=== PATIENT | female | born 1960 | race Caucasian/White ===

== ENCOUNTER 2018-07-29 11:27 | Emergency (ER) | payer OTHER, SELFPAY ==
[2018-07-29 11:28] VITALS: BP 141/101; PULSE 78; RESP 15; TEMP 36.6; O2SAT 100; BMI 25.1
--- NOTE | 2018-07-29 11:31 | EKG12_ITS ---
Test Reason : CP Blood Pressure : / mmHG Vent. Rate : 083 BPM Atrial Rate : 083 BPM P-R Int : 142 ms QRS Dur : 070 ms QT Int : 360 ms P-R-T Axes : 075 057 068 degrees QTc Int : 423 ms Normal sinus rhythm Normal ECG Confirmed by JUAN ALMARAZ ([id number]), television news video editor PHILLIP STRINGER ([id number]) on 08/02/2018 1:35:14 PM Referred By: OLIVIA Confirmed By:JUAN ALMARAZ
--- NOTE | 2018-07-29 11:31 | RAD_ITS ---
STUDY: X-RAY CHEST REASON FOR EXAM: Female, 58 years old. One week history of chest pain. TECHNIQUE: PA and lateral views of the chest. COMPARISON: None. FINDINGS: Hyperinflation. Scattered calcified granulomas. There is no demonstrated pleural abnormality. Normal size heart. Calcified right hilar lymph nodes. Normal visualized pulmonary arteries. Normal visualized aortic arch and descending thoracic aorta. There is demineralization of the osseous structures. Prior fusion of the lower cervical spine. There is no demonstrated abnormality of the visualized soft tissue structures of the upper abdomen. RAD/Chest PA and Lateral IMPRESSION: Hyperinflation. The lungs are clear. Electronically Signed: Anjel Razo, at 12:32 EST , Service support ,
[2018-07-29 12:08] VITALS: BP 139/85; PULSE 80; RESP 15; O2SAT 98
[2018-07-29 12:13] LABS: Absolute Neutrophil Count 2.8 X10^3/uL (2.0-7.7); Basophil# 0.02 X10^3/uL; Basophil% 0.4 % (0-1); Eosinophil# 0.11 X10^3/uL; Hematocrit 39.4 % (37-47); Hemoglobin 12.9 g/dl (12.0-15.0); Lymphocyte % 39.5 % (19-41); Mean Corp Hgb Conc 32.7 g/gl (32-36); Mean Corpuscular Hgb 31.5 pg (27.0-32.0); Mean Corpuscular Volume 96.1 fL (81-99); Mean Platelet Vol. 10.9 fl (6.2-12.0); Monocyte# 0.43 X10^3/uL; Monocyte% 7.7 % (0-10); Neutrophil # 2.79 X10^3/uL (2.7-7.7); Platelet Count 198 K/mm3 (150-450); RBC Distribution Width CV 13.5 % (11.6-14.6); RBC Distribution Width SD 45.9 fl (35.1-43.9); White Blood Count 5.6 K/mm3 (4.4-11.0)
[2018-07-29 12:20] LABS: POSITIVE COUNT NO; POSITIVE DIFFERENTIAL NO; POSITIVE MORPHOLOGY NO
[2018-07-29 12:28] LABS: Anion Gap 8 (5-15); BUN 20 mg/dL (7-18); Calcium,Total 8.7 mg/dL (8.5-10.1); Chloride 106 mmol/L (98-107); Creatinine, Serum 0.74 mg/dL (0.55-1.02); EST Glomerular Filtration Rate 85 mL/min (>60); Est Glom Filt Rate - Afr Amer 103 mL/min (>60); Estimated Creatinine Clearance 75.68 ml/min; Glucose 100 mg/dL (74-106); Potassium 3.8 mmol/L (3.5-5.1); Sodium Level 139 mmol/L (136-145)
--- NOTE | 2018-07-29 12:39 | CT_ITS ---
STUDY: CTA CHEST REASON FOR EXAM: Female, 58 years old. Chest pain. RADIATION DOSAGE (If Supplied By Facility): CTDIvol = ( 6.50 ) mGy, DLP = ( 236.50 ) mGycm TECHNIQUE: The examination was performed with the intravenous administration of Isovue 370 75ML IV. Post-processing of the angiographic images was performed, with multiplanar reformation and 3D reconstruction. Individualized dose optimization techniques were used for this CT. COMPARISON: Comparison is made with prior chest radiograph done earlier today. FINDINGS: Normal enhancement of the main pulmonary artery and right and left pulmonary arteries. Normal enhancement of the bilateral peripheral pulmonary arteries. There is no demonstrated pulmonary embolism. Normal thoracic aorta and visualized great vessels. There is no demonstrated aortic dissection. Normal heart and pericardium. There are calcified mediastinal lymph nodes. There are calcified right hilar lymph nodes. Normal visualized trachea and bronchi. The lungs are well expanded. Normal pulmonary parenchyma. Calcified granuloma in the superior segment of the right lower lobe. Normal pleura. Normal chest wall structures. There are degenerative changes of thoracic spine. Normal visualized upper abdomen. CT/CTA Chest W/WO Contrast IMPRESSION: No acute abnormality is seen. Electronically Signed: Anjel Razo, at 13:51 EST , Service support ,
[2018-07-29 13:02] VITALS: BP 146/82; PULSE 85; RESP 14; O2SAT 98
[2018-07-29 13:06] VITALS: BP 139/85; PULSE 80; RESP 15
[2018-07-29] MEDS: Mag Hydrox/Al Hydrox/Simeth 30 ML UDC PO (13:12)
[2018-07-29 14:21] VITALS: BP 130/80; PULSE 82; RESP 14; O2SAT 98
--- NOTE | 2018-07-29 14:53 | ED.DCSUM_ITS ---
- ER Visit Summary Date of Service: 07/29/18 Chief Complaint: Chest pain History of Present Illness: The patient is a 58 F who presents the emergency room with left-sided chest pain. She describes as burning in nature. She reports that one week ago right side of her chest started aching. She states now the left side of her chest is burning. Nothing makes it better or worse. She took an aspirin last night. She notes some shortness of breath. No significant cough. No nausea vomiting or diarrhea. Physical Examination: Afebrile vital signs stable Gen: Well-nourished well-developed Head: Normocephalic atraumatic Eyes: Perrl EOMI ENT: TMs clear no rhinorrhea moist mucous membranes Neck: Supple no lymphadenopathy no JVD nontender CVS: Regular rate rhythm no murmurs normal S1-S2 Respiratory: No distress clear to auscultation bilaterally chest nontender Abdomen: Soft nontender nondistended normal bowel sounds no masses Back: Nontender Extremity: Nontender no edema Skin: Normal color no rash Neuro: alert orientated ?3 CN II-XII intact normal strength sensation reflexes gait cerebellar Psych: Normal affect normal mood Test Results: CBCs BMP troponin were negative. Chest x-ray negative. EKG sinus at a rate of 83. No ectopy. CT Masha of the chest was obtained which demonstrates no pulmonary embolism, no dissection, or evidence of pleural effusion. Emergency Department Course and Treatment: GI cocktail did not improve the patient's symptoms. She has been resting comfortably. No events on the monitor. At this point is been 1 week of chest symptoms with a negative troponin. Is no PE or dissection. Be discharged home with supportive care follow-up with primary care Impression: 1. Chest pain This note was generated with [employer] software. It may contain incorrect words, spelling, and punctuation that were not noted in review of the chart prior to signing ED Disposition - Plan for ED Patient: Disposition: Home or Assisted Living Instructions: ED Chest Pain Pleurisy Referrals: Kristina Angelo MD [STAFF PHYSICIAN] - As Needed
[2018-07-29 15:06] VITALS: BP 141/80; PULSE 80; RESP 14; O2SAT 98
== END 2018-07-29 15:07 | disposition home or self-care (01) ==
PROVIDERS: Emergency Provider Emergency Medicine; Family Provider Family Medicine; PCP Family Medicine
DX: R07.9 Chest pain, unspecified (principal)
CPT/HCPCS: 71046; 71275; 80048; 84484; 85025; 93005; 99284; Q9967; A4216